=== PATIENT | male | born 1960 | race Caucasian/White ===

== ENCOUNTER → 2016-12-12 | Outpatient (CLI) | payer OTHER ==
--- NOTE | ~2016-12-12 | EKG ---
[address] [address] ELECTROCARDIOGRAM REPORT Name: ARNULFOTRISTON William Room #: [facility]#: [id number] Admission: 12/12/16 Attend Phys: Ralph Li MD Discharge: Date of : 62 Report #: [id number] THIS REPORT FOR: //name// [facility] Test Date: 2016-12-12 Test Time: 14:54:39 Pat Name: TRISTON ARREDONDO Department: Room: Gender: M Ext Js Developer: BENJAMIN : 1960 Requested By: Ralph Li Order Number: [id number] MD: Idris Melton Measurements Intervals [place] Rate: 48 P: 48 CT: 214 QRS: 46 QRSD: 93 T: 47 QT: 434 QTc: 388 Interpretive Statements Sinus bradycardia Minimal ST elevation, anterior leads No previous ECG available for comparison Electronically Signed On 12-13-2016 9:30:04 CDT by Idris Melton [email or web address] <ELECTRONICALLY SIGNED> By: Idris Melton MD 12/13/16 0930 1454 1454 MD SHANELL Yeboah
== END | disposition home or self-care (01) ==
LOC: LITH 10:54
DX: N20.1 Calculus of ureter (principal)